=== PATIENT | female | born 1955 | race Caucasian/White ===

== ENCOUNTER → 2020-07-28 | Outpatient (CLI) | payer BC ==
[~2020-07-28] MED LIST: ASPI-886 PO; CITA10TA4 PO; DOCU-153 PO; GABA-585 PO; HYDR-2761 PO; LEVO50TA5 PO; METH750T2 PO; TRAM50TA PO
[2020-07-28 14:15] LABS: BASO # 0.1 x10^3/uL (0.0-0.2); BASO % 1 % (0-3); EOS # 0.4 x10^3/uL (0.0-0.7); EOS % 4 % (0-3); HEMATOCRIT 43.3 % (36.0-47.0); HEMOGLOBIN 14.8 g/dL (12.0-15.5); LYMPH # 2.4 x10^3/uL (1.0-4.8); LYMPH % 26 % (24-48); MEAN CORPUSCULAR HEMOGLOBIN 32 pg (25-35); MEAN CORPUSCULAR HGB CONC 34 g/dL (31-37); MEAN CORPUSCULAR VOLUME 93 fL (79-100); MONO # 0.9 x10^3/uL (0.0-1.1); MONO % 10 % (0-9); NEUT # 5.6 x10^3/uL (1.8-7.7); NEUT % 60 % (31-73); PLATELET COUNT 170 x10^3/uL (140-400); RED BLOOD COUNT 4.65 x10^6/uL (3.50-5.40); RED CELL DISTRIBUTION WIDTH 13.3 % (11.5-14.5); WHITE BLOOD COUNT 9.4 x10^3/uL (4.0-11.0)
[2020-07-28 14:46] LABS: ALBUMIN 3.5 g/dL (3.4-5.0); CALCIUM 8.9 mg/dL (8.5-10.1); CREATININE 0.8 mg/dL (0.6-1.0); GFR 72.2; POTASSIUM 3.9 mmol/L (3.5-5.1); TOTAL BILIRUBIN 0.5 mg/dL (0.2-1.0)
[2020-07-28 15:33] LABS: PLT ESTIMATE ADEQUATE (ADEQUATE)
--- NOTE | 2020-08-02 14:52 | HP ---
ADMIT DATE: PREOPERATIVE HISTORY AND PHYSICAL Saturnino Mohan dictating for Dr. Yifan Canales. DATE OF SURGERY: 08/03/2020. HISTORY OF PRESENT ILLNESS: The patient is a pleasant 65-year-old, who is having difficulty with sharp pain in her left neck and left shoulder. She notices pain which radiates into both of her arms, the left is much worse at night. She said she began to notice unsteadiness with walking combined with generalized weakness. These problems began about 6 months ago with regard to numbness and 2 months ago with regard to pain. She rates her pain as a 6-7/10 with tramadol. Moving her upper extremities, increases her pain. She also has low back pain, which she says radiates into both of her legs, worse on the left. PAST MEDICAL HISTORY: Head or neck injury, thyroid disease, pneumonia. PAST SURGICAL HISTORY: Lumbar microdecompression, L5-S1, 1989 and ACDF in 1989. FAMILY HISTORY: Cancer, diabetes, heart problems and disease, hypertension, [place] at an early age. SOCIAL HISTORY: Retired. . Rarely exercises. Denies substance abuse. Smokes one half pack per day and has for 15 years. Drinks alcohol 1-2 times per year. Drinks soda daily. ALLERGIES: No known drug allergies. CURRENT MEDICATIONS: Aspirin, levothyroxine, atorvastatin, citalopram, tramadol. REVIEW OF SYSTEMS: A 12-point review of systems was obtained and is noncontributory except that mentioned above. PHYSICAL EXAMINATION: NEUROSURGERY EXAMINATION: GENERAL APPEARANCE: Alert, pleasant, no acute distress. HEAD: Normocephalic and atraumatic. NECK AND THYROID: Gijy-bb-mugzamwo tenderness with palpation of posterior cervical region, especially on the left side of the left trapezius. SKIN: Warm and dry. MUSCULOSKELETAL: Cervical paraspinal muscle bulk is normal, cervical range of motion is restricted, normal range of motion of the upper extremities bilaterally. EXTREMITIES: No clubbing, cyanosis or edema. NEUROLOGIC: Alert and oriented x 3, normal recent and remote memory. Strength 5/5 in bilateral upper and lower extremities, sensory was intact to light touch in the upper and lower extremities except for subjective numbness and tingling in both of her hands. Reflexes are present and symmetric in the upper and lower extremities bilaterally, and they were increased in the knees and ankles with 2-3 beats of clonus on each side. Normal gait. IMAGING: Reviewed. I reviewed a cervical MRI scan from 04/04/2020. The principal abnormalities are at C3-C4. There is a relatively severe cervical spinal stenosis with myelomalacia within the spinal cord. At C5-C6, there is a moderately severe stenosis without definite cord compression. ASSESSMENT: 1. Spinal stenosis, cervical region. 2. Other spondylosis with myelopathy, cervical region. 3. Pain in the left shoulder. PLAN: At this point, she has 2 problems. There is a left shoulder issue, this will need to be evaluated by Orthopedic Surgery. Additionally, she has a severe cervical spinal stenosis at C3-C4 with changes within the spinal cord and evidence of cervical myelopathy. I would have her undergo an anterior cervical diskectomy and fusion at C3-C4. I did discuss cervical surgery with the patient and her . I outlined the risks as well as the benefits and surgeries. I spoke about technically the operation and expected postoperative course. She understands. We will make the arrangements. YIFAN CANALES MD DR: RPINCE/jorge luis JOB#: [id number] / [id number]
== END | disposition home or self-care (01) ==
LOC: SURGPAT 12:55
PROVIDERS: ATTEND Neurological Surgery
DX: Z01.812 Encounter for preprocedural laboratory examination (principal); M48.02 Spinal stenosis, cervical region; M47.12 Other spondylosis with myelopathy, cervical region; Z20.828 Contact with and (suspected) exposure to other viral communicable diseases
CPT/HCPCS: 80053; 85025; 87641; U0003

== ENCOUNTER 2020-08-03 10:20 | Day surgery (SDC) | payer BC ==
[~2020-08-03] VITALS: Ht 165.1 cm; Wt 63.5 kg
[2020-08-03] VITALS (8 sets, daily range): BP systolic 112–129; BP diastolic 45–92
--- NOTE | 2020-08-03 07:04 | HP ---
ADMIT DATE: PREOPERATIVE HISTORY AND PHYSICAL Saturnino Mohan dictating for Dr. Yifan Canales. DATE OF SURGERY: 08/03/2020. HISTORY OF PRESENT ILLNESS: The patient is a pleasant 65-year-old, who is having difficulty with sharp pain in her left neck and left shoulder. She notices pain which radiates into both of her arms, the left is much worse at night. She said she began to notice unsteadiness with walking combined with generalized weakness. These problems began about 6 months ago with regard to numbness and 2 months ago with regard to pain. She rates her pain as a 6-7/10 with tramadol. Moving her upper extremities, increases her pain. She also has low back pain, which she says radiates into both of her legs, worse on the left. PAST MEDICAL HISTORY: Head or neck injury, thyroid disease, pneumonia. PAST SURGICAL HISTORY: Lumbar microdecompression, L5-S1, 1989 and ACDF in 1989. FAMILY HISTORY: Cancer, diabetes, heart problems and disease, hypertension, [place] at an early age. SOCIAL HISTORY: Retired. . Rarely exercises. Denies substance abuse. Smokes one half pack per day and has for 15 years. Drinks alcohol 1-2 times per year. Drinks soda daily. ALLERGIES: No known drug allergies. CURRENT MEDICATIONS: Aspirin, levothyroxine, atorvastatin, citalopram, tramadol. REVIEW OF SYSTEMS: A 12-point review of systems was obtained and is noncontributory except that mentioned above. PHYSICAL EXAMINATION: NEUROSURGERY EXAMINATION: GENERAL APPEARANCE: Alert, pleasant, no acute distress. HEAD: Normocephalic and atraumatic. NECK AND THYROID: Chhf-st-npdaqdrg tenderness with palpation of posterior cervical region, especially on the left side of the left trapezius. SKIN: Warm and dry. MUSCULOSKELETAL: Cervical paraspinal muscle bulk is normal, cervical range of motion is restricted, normal range of motion of the upper extremities bilaterally. EXTREMITIES: No clubbing, cyanosis or edema. NEUROLOGIC: Alert and oriented x 3, normal recent and remote memory. Strength 5/5 in bilateral upper and lower extremities, sensory was intact to light touch in the upper and lower extremities except for subjective numbness and tingling in both of her hands. Reflexes are present and symmetric in the upper and lower extremities bilaterally, and they were increased in the knees and ankles with 2-3 beats of clonus on each side. Normal gait. IMAGING: Reviewed. I reviewed a cervical MRI scan from 04/04/2020. The principal abnormalities are at C3-C4. There is a relatively severe cervical spinal stenosis with myelomalacia within the spinal cord. At C5-C6, there is a moderately severe stenosis without definite cord compression. ASSESSMENT: 1. Spinal stenosis, cervical region. 2. Other spondylosis with myelopathy, cervical region. 3. Pain in the left shoulder. PLAN: At this point, she has 2 problems. There is a left shoulder issue, this will need to be evaluated by Orthopedic Surgery. Additionally, she has a severe cervical spinal stenosis at C3-C4 with changes within the spinal cord and evidence of cervical myelopathy. I would have her undergo an anterior cervical diskectomy and fusion at C3-C4. I did discuss cervical surgery with the patient and her . I outlined the risks as well as the benefits and surgeries. I spoke about technically the operation and expected postoperative course. She understands. We will make the arrangements. YIFAN CNAALES MD DR: PRINCE/jorge luis JOB#: [id number] / [id number]
[~2020-08-03 10:20] MED LIST changes: +BACITRACIN 50,000 UNIT in IV NORMAL SALINE 1000ML BAG 1,000 ML IRR ONE; -DOCU-153 PO; -HYDR-2761 PO; -METH750T2 PO
[2020-08-03] MEDS ORDERED: GELATIN SPONGE SIZE 100. ONE (11:00)
[2020-08-03] MEDS ORDERED: BUPIVACAINE-EPI 0.5%-1:200000 MPF 30 ML VIAL. ONE (11:00)
[2020-08-03] MEDS ORDERED: THROMBIN TOPICAL 20,000 UNIT SPRAY.SYRN KIT TP ONE (11:01)
[2020-08-03] MEDS ORDERED: ROCURONIUM 50 MG/5 ML VIAL. ONE (11:15)
[2020-08-03] MEDS ORDERED: PROPOFOL 10 MG/ML (20ML) VIAL. IV ONE (11:15)
[2020-08-03] MEDS ORDERED: LIDOCAINE 2% PF 5 ML VIAL. ONE (11:15)
[2020-08-03] MEDS ORDERED: REMIFENTANIL 1 MG VIAL. IV ONE ×2 (11:15→14:14)
[2020-08-03] MEDS: IV RINGERS,LACTATED 1000ML 1,000 ML IV SCH ×2 (11:15→21:10)
[2020-08-03] MEDS ORDERED: fentaNYL PF VIAL 100 MCG/2 ML VIAL ONE ×3 (11:15→16:32)
[2020-08-03] MEDS ORDERED: PROPOFOL 50 ML IV ONE ×2 (11:16→13:38)
[2020-08-03] MEDS ORDERED: PHENYLEPHRINE in 0.9% NACL PF 1 MG/10 ML SYRINGE. IV ONE (11:16)
[2020-08-03] MEDS ORDERED: SUCCINYLCHOLINE 200 MG/10 ML VIAL. ONE (11:17)
[2020-08-03] MEDS ORDERED: 0.9 % SODIUM CHLORIDE 20 ML VIAL. IJ ONE (11:18)
[2020-08-03] MEDS ORDERED: DEXAMETHASONE SOD PHOS 20 MG/5 ML VIAL. ONE (13:00)
[2020-08-03] MEDS ORDERED: ONDANSETRON PF 4 MG/2 ML VIAL. ONE (13:00)
[2020-08-03] MEDS ORDERED: IV RINGERS,LACTATED 1000ML 1,000 ML IV SCH (15:33)
[2020-08-03] MEDS ORDERED: MAG HYDROX/ALUMINUM HYD/SIMETH 30 ML ORAL.SUSP PO PRN (15:45)
[2020-08-03] MEDS ORDERED: ACETAMINOPHEN 325 MG TABLET. PO PRN (15:45)
[2020-08-03] MEDS ORDERED: METHOCARBAMOL 750 MG TABLET PO PRN (15:45)
[2020-08-03] MEDS ORDERED: CALCIUM CARBONATE 500 MG TAB.CHEW PO PRN (15:45)
[2020-08-03] MEDS ORDERED: HYDROmorphone 2 MG/ML VIAL IV PRN (15:45)
[2020-08-03] MEDS ORDERED: LIDOCAINE 1% PF 2 ML VIAL. ID PRN (15:45)
[2020-08-03] MEDS ORDERED: HYDROcodone/APAP 5/325MG 1 TAB TABLET PO PRN (15:45)
[2020-08-03] MEDS ORDERED: fentaNYL PF VIAL 100 MCG/2 ML VIAL IV PRN ×2 (15:45)
[2020-08-03] MEDS ORDERED: fentaNYL PF VIAL 100 MCG/2 ML VIAL IVP PRN (15:45)
[2020-08-03] MEDS ORDERED: MAGNESIUM HYDROXIDE 2,400 MG/30 ML ORAL.SUSP. PO PRN (15:45)
[2020-08-03] MEDS ORDERED: NALOXONE 0.4 MG/ML VIAL. IV PRN (15:45)
[2020-08-03] MEDS ORDERED: 0.9 % SODIUM CHLORIDE 10 ML DISP.SYRIN. IV PRN (15:45)
[2020-08-03] MEDS ORDERED: traMADol 50 MG TABLET PO PRN (15:45)
[2020-08-03] MEDS ORDERED: PROCHLORPERAZINE 10 MG/2 ML VIAL. IV PRN (15:45)
[2020-08-03] MEDS ORDERED: ONDANSETRON PF 4 MG/2 ML VIAL. IV PRN (15:45)
[2020-08-03] MEDS ORDERED: diphenhydrAMINE HCL 25 MG CAPSULE PO PRN (15:45)
[2020-08-03] MEDS ORDERED: MORPHINE SULFATE 2 MG/ML VIAL. ONE (16:04)
[2020-08-03] MEDS: MORPHINE SULFATE 2 MG/ML VIAL. IV PRN ×2 (16:06→16:15)
--- NOTE | 2020-08-03 16:45 | NUR ---
Arrived to unit by bed from PACU. C/o nausea. Cold cloth applied to forehead. Anterior neck dressing is d/i with soft collar. Moves all extremities easily still has some numbness left foot. Pedal pulses +. IVF's intact and infusing. TONY's and SCD's on bilaterally. Side rails up x's 2 with call light in reach. Spouse at bedside. VS stable. Cont. monitor.
--- NOTE | 2020-08-03 17:00 | NUR ---
Ambulated to bathroom and voided and return back to bed. State pain is so much better prior to surgery. Took sips of lemon coquille soda and belched. Stated "feel better". Gave jello and juice. Cont. monitor.
--- NOTE | 2020-08-03 17:04 | OP ---
DATE OF SURGERY: 08/03/2020 PREOPERATIVE DIAGNOSIS: Herniated cervical disc, C3-C4, with cervical spinal stenosis and myelomalacia. POSTOPERATIVE DIAGNOSIS: Herniated cervical disc, C3-C4, with cervical spinal stenosis and myelomalacia. OPERATION PERFORMED: Anterior cervical microdiscectomy at C3-C4; anterior cervical interbody fusion at C3-C4 with allograft and bone; and anterior cervical plate C3-C4. The operation was done with multimodality monitoring including EMG, SSEP, NIMS monitoring, motor evoked potentials. We also used fluoroscopy and microscopic dissection. ESCALATOR SERVICE MECHANIC: ANGUS Quiroz assisted with the surgery. She assisted with the exposure, the microdiscectomy as well as the closure. OPERATIVE INDICATIONS: The patient is a pleasant 65-year-old who developed intractable neck and bilateral arm pain along with feelings of unsteadiness. She had above-mentioned findings at C3-C4. She also had a degree of stenosis at C5-C6; however, there was no definite cord compression at this level and there was no myelomalacia. I elected to operate anteriorly at C3-C4. She understood the surgery and risks, she wished to go ahead. DESCRIPTION OF PROCEDURE: Following general endotracheal anesthesia, the patient was positioned prone on the Lucien table. Lumbar area was prepped and draped in standard fashion. TONY hose and AV impulse boots were applied for DVT prophylaxis. A microscope was draped. Fluoroscopy was draped and brought into field. Monitoring was established. Ancef 2 g was given less than 1 hour prior to the initiation of the surgery. Using fluoroscopic guidance, an incision was made from the midline around to the right side in a skin crease and at that point, then I dissected down through skin and subcutaneous tissue. I sharply opened the platysma, dissected around the medial aspect of the sternocleidomastoid and carotid artery sheath down the anterior cervical vertebral bodies. I identified C4-C5. I was able to place retractors at C3-C4 and obtained fluoroscopic images. I then placed distraction pins in C3 and C4 and brought in the microscope during this time. I incised the anterior annulus with #11 blade and performed discectomy with pituitary rongeurs. I used the endplate scraper and scraped the cartilaginous endplate. I drilled posteriorly and removed the posterior spurring and then trimmed and removed a large posterior disc bulge. I did open the annulus as well as the ligament and fully decompressed the region. I then measured and placed a 7-mm interbody fusion cage, which was packed with allograft bone. Once this was gently tapped into position, I placed a 20-mm anterior plate, placed superior and inferior 14 mm screws followed by the remaining two screws, which were then locked. I irrigated, I assured myself of excellent positioning on fluoroscopic images. I assured myself of perfect hemostasis. I then closed the wound in layers with absorbable suture. Skin was closed with 4-0 subcuticular stitch. I felt the surgery went very well. ROHIT CANALES MD DR: PRINCE/jorge luis JOB#: [id number] / [id number]
[2020-08-03] MEDS: POTASSIUM CL 20MEQ D5-0.45NACL 1,000 ML IV SCH (19:55)
[2020-08-03] MEDS: HYDROcodone/APAP 5/325MG 1 TAB TABLET PO PRN (21:23)
[2020-08-03] MEDS: GABAPENTIN 100 MG CAPSULE. PO SCH (21:23)
[2020-08-03] MEDS: ceFAZolin SODIUM IV Push 1 GM VIAL. IVP SCH (21:24)
[2020-08-03] MEDS: DOCUSATE SODIUM 100 MG CAPSULE. PO SCH (21:24)
[2020-08-04 03:12] VITALS: BP 98/50
[2020-08-04] MEDS: POTASSIUM CL 20MEQ D5-0.45NACL 1,000 ML IV SCH (04:55)
[2020-08-04] MEDS: ceFAZolin SODIUM IV Push 1 GM VIAL. IVP SCH ×2 (04:56→13:18)
[2020-08-04] MEDS: HYDROcodone/APAP 5/325MG 1 TAB TABLET PO PRN (05:09)
--- NOTE | 2020-08-04 05:09 | NUR ---
0600 Levothyroxine given early with Pain medication as Patient states "I want to sleep."
[2020-08-04] MEDS ORDERED: LEVOTHYROXINE 50 MCG TABLET PO SCH (06:00)
[2020-08-04 06:13] VITALS: BP 115/53
[2020-08-04] MEDS: DOCUSATE SODIUM 100 MG CAPSULE. PO SCH (08:34)
[2020-08-04] MEDS: GABAPENTIN 100 MG CAPSULE. PO SCH (08:34)
[2020-08-04] MEDS ORDERED: CITALOPRAM 10 MG TABLET. PO SCH (09:00)
[2020-08-04] MEDS ORDERED: ASPIRIN ENTERIC COATED 81 MG TABLET.DR. PO SCH (09:00)
[2020-08-04] MEDS ORDERED: DOCU-153 PO (10:47)
[2020-08-04] MEDS ORDERED: METH750T2 PO (10:47)
[2020-08-04] MEDS ORDERED: HYDR-2761 PO (10:47)
--- NOTE | 2020-08-04 10:48 | DISCH ---
DISCHARGE INSTRUCTIONS Condition on Discharge Condition on Discharge: Stable Activity After Discharge Activity Instructions for Disc: Activity as tolerated, Avoid exertion Other activity instructions: no driving for a week, soft collar for comfort Bathing Instructions: Shower-keep dressing dry Diet after Discharge Additional Diet Restrictions: resume home diet Wound Incision Care Wound/Incision Care: Ice to area for comfort Other wound/incision instructi: may remove dressing in 48 hours if dry then may shower, no soaking Contacting the DRAntonio after DC Call your doctor for: Concerns you may have Follow-Up Follow up with: Dr. Canales's nurse in 2 weeks [phone] ROHIT CANALES MD Aug 04, 2020 10:48
[2020-08-04 10:50] VITALS: BP 112/56
--- NOTE | 2020-08-04 13:50 | NUR ---
Discharge instructions given with prescriptions. Answered questions and concerns. Verbalized understanding. Pt discharged home accompanied by spouse.
--- NOTE | 2020-08-05 19:07 | PATHOLOGY ---
[facility] Accession Number: [id number] . 01 Material submitted: . vertebral column - CERVICAL DISC . 01 Clinical history: . CERVICAL STENOSIS, SPONDYLOSIS WITH RADICULOPATHY . 02 Diagnosis: Segments of fibrocartilaginous tissue and bone, cervical disc: - Degenerative changes of fibrocartilaginous tissue. LBQ 08/05/2020 1530 Local . 02 Comment: There is no evidence of an acute inflammatory process or malignancy. (JPM/db; 08/05/2020) . 02 Electronically signed: . Chip Suazo MD, Pathologist NPI- [id number] . 01 Gross description: . The specimen is received in formalin, labeled "Bety Kinge, cervical disc". Received are multiple segments of pale walden fibrous, gritty tissue admixed with possible bone measuring 3.0 x 1.8 x 0.4 cm in aggregate dimensions. The specimen is filtered and entirely submitted in cassette A1, following light decalcification. (CAA; 08/04/2020) QAC/QAC 08/04/2020 1826 Local . 02 Pathologist provided ICD-10: M50.90 . 02 CPT . 050034, [id number] Specimen Comment: A courtesy copy of this report has been sent to [phone], [phone] Specimen Comment: [phone] Specimen Comment: Report sent to / DR LARES Performed at: 01 [facility] [address], [place] [id number] MD Anthony Bell MD Phone: [phone] Performed at: 02 [facility] [address], [place] [id number] MD Chip Suazo MD Phone: [phone]
== END 2020-08-04 13:50 | disposition home or self-care (01) ==
LOC: SURG 10:20 → 4 SOUTHEST 15:30
PROVIDERS: ADMIT Neurological Surgery; ATTEND Neurological Surgery
DX: M50.01 Cervical disc disorder with myelopathy, high cervical region (principal); M48.02 Spinal stenosis, cervical region; M47.12 Other spondylosis with myelopathy, cervical region; G95.89 Other specified diseases of spinal cord; F17.210 Nicotine dependence, cigarettes, uncomplicated
CPT/HCPCS: 20931; 22551; 22845; 76000; 96374; 96376; 97116; 97162; 97530; A7015; G0378; G0379; J0330; J0690; J1100; J2270; J2370; J2405; J2704; J3010; J3490; J7030; J7120; C1713

== ENCOUNTER → 2020-12-01 | Outpatient (CLI) | payer BC ==
[~2020-12-01] MED LIST changes: +ATOR10TA60 PO; -BACITRACIN 50,000 UNIT in IV NORMAL SALINE 1000ML BAG 1,000 ML IRR ONE; +DOCU-153 PO; +HYDR-2761 PO; +METH-562 PO
[2020-12-01 10:17] LABS: BASO # 0.1 x10^3/uL (0.0-0.2); BASO % 1 % (0-3); EOS # 0.3 x10^3/uL (0.0-0.7); EOS % 3 % (0-3); HEMATOCRIT 44.5 % (36.0-47.0); HEMOGLOBIN 14.9 g/dL (12.0-15.5); LYMPH # 2.2 x10^3/uL (1.0-4.8); LYMPH % 20 % (24-48); MEAN CORPUSCULAR HEMOGLOBIN 31 pg (25-35); MEAN CORPUSCULAR HGB CONC 33 g/dL (31-37); MEAN CORPUSCULAR VOLUME 93 fL (79-100); MONO % 9 % (0-9); NEUT # 7.1 x10^3/uL (1.8-7.7); NEUT % 67 % (31-73); PLATELET COUNT 183 x10^3/uL (140-400); RED BLOOD COUNT 4.78 x10^6/uL (3.50-5.40); RED CELL DISTRIBUTION WIDTH 13.3 % (11.5-14.5); WHITE BLOOD COUNT 10.6 x10^3/uL (4.0-11.0)
[2020-12-01 10:36] LABS: ALBUMIN 3.7 g/dL (3.4-5.0); ALBUMIN/GLOBULIN RATIO 0.9 (1.0-1.7); CALCIUM 9.2 mg/dL (8.5-10.1); CREATININE 0.8 mg/dL (0.6-1.0); GFR 72.2; POTASSIUM 4.1 mmol/L (3.5-5.1); TOTAL BILIRUBIN 0.7 mg/dL (0.2-1.0); TOTAL PROTEIN 7.6 g/dL (6.4-8.2)
[2020-12-01 13:21] LABS: PLT ESTIMATE ADEQUATE (ADEQUATE)
== END ==
LOC: SURGPAT 09:21
PROVIDERS: ATTEND Neurological Surgery
DX: Z01.812 Encounter for preprocedural laboratory examination (principal); M48.062 Spinal stenosis, lumbar region with neurogenic claudication; Z20.828 Contact with and (suspected) exposure to other viral communicable diseases
CPT/HCPCS: 36415; 80053; 85025; 87641; U0003

== ENCOUNTER → 2021-01-18 | Outpatient (CLI) | payer BC ==
[~2021-01-18] MED LIST changes: -ATOR10TA60 PO
[2021-01-18 13:43] LABS: BASO # 0.1 x10^3/uL (0.0-0.2); BASO % 1 % (0-3); EOS # 0.3 x10^3/uL (0.0-0.7); EOS % 3 % (0-3); HEMATOCRIT 42.8 % (36.0-47.0); HEMOGLOBIN 14.2 g/dL (12.0-15.5); LYMPH # 2.3 x10^3/uL (1.0-4.8); LYMPH % 24 % (24-48); MEAN CORPUSCULAR HEMOGLOBIN 31 pg (25-35); MEAN CORPUSCULAR HGB CONC 33 g/dL (31-37); MEAN CORPUSCULAR VOLUME 94 fL (79-100); MONO # 0.9 x10^3/uL (0.0-1.1); MONO % 10 % (0-9); NEUT # 6.1 x10^3/uL (1.8-7.7); NEUT % 63 % (31-73); PLATELET COUNT 192 x10^3/uL (140-400); RED BLOOD COUNT 4.56 x10^6/uL (3.50-5.40); RED CELL DISTRIBUTION WIDTH 13.2 % (11.5-14.5); WHITE BLOOD COUNT 9.7 x10^3/uL (4.0-11.0)
[2021-01-18 14:08] LABS: ALBUMIN 3.4 g/dL (3.4-5.0); ALBUMIN/GLOBULIN RATIO 0.9 (1.0-1.7); CREATININE 0.8 mg/dL (0.6-1.0); GFR 72.2; POTASSIUM 4.3 mmol/L (3.5-5.1); TOTAL BILIRUBIN 0.4 mg/dL (0.2-1.0); TOTAL PROTEIN 7.3 g/dL (6.4-8.2)
[2021-01-18 14:09] LABS: PLT ESTIMATE ADEQUATE (ADEQUATE)
== END ==
LOC: SURGPAT 12:46
PROVIDERS: ATTEND Neurological Surgery
DX: Z01.812 Encounter for preprocedural laboratory examination (principal); M48.062 Spinal stenosis, lumbar region with neurogenic claudication; Z20.822 Contact with and (suspected) exposure to COVID-19
CPT/HCPCS: 80053; 85025; 87641; U0003

== ENCOUNTER 2021-01-26 08:11 | Observation (INO) | payer BC ==
--- NOTE | 2021-01-20 17:26 | PREOP HP ---
DATE OF SERVICE: 01/25/2021. PREOPERATIVE HISTORY AND PHYSICAL DATE OF ADMISSION: 01/25/2021. HISTORY OF PRESENT ILLNESS: The patient is a 65-year-old woman who is having difficulty with low back pain and bilateral leg pain in the posterior thighs, legs as well as anterior right thigh. The problem started in the spring. She rates her pain 8/10. Standing and walking increase her pain, lying down helps. She has failed to improve with conservative measures. CURRENT MEDICATIONS: Gabapentin, Robaxin, and tramadol. PAST MEDICAL HISTORY: Head/neck injury, thyroid disease, pneumonia. PAST SURGICAL HISTORY: Lumbar surgery at L5-S1 in 1989, ACDF in 1989, ACDF at C3-C4 in 07/2020. FAMILY HISTORY: Cancer, diabetes, heart disease/hypertension, [place]. ALLERGIES: No known drug allergies. SOCIAL HISTORY: Retired, . Smokes a half pack a day for 15 years. Drinks alcohol 1-2 times per year. REVIEW OF SYSTEMS: A 12-point review of systems was performed and is noncontributory except that mentioned above. PHYSICAL EXAMINATION: GENERAL: Alert, pleasant, in no acute distress. HEAD: Normocephalic, atraumatic. SKIN: Warm and dry. MUSCULOSKELETAL: Lumbar paraspinal muscle bulk is normal, restricted range of motion of the lumbar spine, wjrk-uo-wecjdipo tenderness of the lower lumbar spine with palpation, normal range of motion of the lower extremities bilaterally. EXTREMITIES: No clubbing, cyanosis or edema. NEUROLOGIC: Alert and oriented x 3, normal recent and remote memory, strength is 5/5 in the lower extremities. Sensory was intact to light touch in the lower extremities except for decreased sensation on the left anterior thigh. Reflexes were present and symmetric in the lower extremities, forward stooped gait. IMAGING: I reviewed a lumbar MRI scan from 09/2020. On that study, the principal abnormalities are at L3-L4 where there is severe spinal stenosis and moderate bilateral foraminal lateral recess narrowing. ASSESSMENT AND PLAN: I believe the problems are related to the severe stenosis at L3-L4. I spoke with her about treatment options. She is unable to have epidural steroid injections. She has been doing physical therapy exercises at home with no improvement. At this point, I have recommended a lumbar microdecompressive surgery at L3-L4. I spoke with her about the technique, the risk and the expected postoperative course. She and her understand. She would like to proceed with surgery. ROHIT CANALES MD DR: REGINO/jorge luis JOB#: [id number] / [id number] MARTIN
[2021-01-26] VITALS (7 sets, daily range): BP systolic 87–139; BP diastolic 32–85
[~2021-01-26] VITALS: Ht 165.1 cm; Wt 64.4 kg
[~2021-01-26 08:11] MED LIST changes: +BACITRACIN 50,000 UNIT in IV NORMAL SALINE 1000ML BAG 1,000 ML IRR ONE; +BUPIVACAINE-EPI 0.5%-1:200000 MPF 30 ML VIAL. ONE; +GELATIN SPONGE SIZE 100. ONE; +HYDROmorphone 2 MG/ML VIAL IVP PRN; +IV RINGERS,LACTATED 1000ML 1,000 ML IV SCH; +KETOROLAC 60 MG/2 ML VIAL. ONE; +MORPHINE SULFATE 2 MG/ML VIAL. IVP PRN; +PROCHLORPERAZINE 10 MG/2 ML VIAL. IVP PRN; +THROMBIN TOPICAL 20,000 UNIT SPRAY.SYRN KIT TP ONE; +fentaNYL PF VIAL 100 MCG/2 ML VIAL IVP PRN
[2021-01-26] MEDS ORDERED: ATOR10TA60 PO (08:41)
[2021-01-26] MEDS ORDERED: PROPOFOL 50 ML IV ONE (10:17)
[2021-01-26] MEDS ORDERED: PROPOFOL 10 MG/ML (20ML) VIAL. IV ONE (10:17)
[2021-01-26] MEDS ORDERED: LIDOCAINE 2% PF 5 ML VIAL. ONE (10:17)
[2021-01-26] MEDS ORDERED: fentaNYL PF VIAL 100 MCG/2 ML VIAL ONE (10:18)
[2021-01-26] MEDS ORDERED: ROCURONIUM 50 MG/5 ML VIAL. ONE (10:19)
[2021-01-26] MEDS ORDERED: REMIFENTANIL 2 MG VIAL. IV ONE (10:50)
[2021-01-26] MEDS ORDERED: DEXAMETHASONE SOD PHOS 20 MG/5 ML VIAL. ONE (11:14)
[2021-01-26] MEDS ORDERED: ONDANSETRON PF 4 MG/2 ML VIAL. ONE (11:31)
[2021-01-26] MEDS ORDERED: PHENYLEPHRINE 10 MG/ML VIAL. ONE (11:33)
[2021-01-26] MEDS ORDERED: NEOSTIGMINE METHYLSULFATE 5 MG/5 ML SYRINGE. ONE (13:23)
[2021-01-26] MEDS ORDERED: GLYCOPYRROLATE 1 MG/5 ML VIAL. ONE (13:23)
--- NOTE | 2021-01-26 13:49 | OP ---
DATE OF SURGERY: 01/26/2021 PREOPERATIVE DIAGNOSES: Lumbar spinal stenosis at L3-L4 with lumbar neurogenic claudication. POSTOPERATIVE DIAGNOSES: Lumbar spinal stenosis at L3-L4 with lumbar neurogenic claudication. OPERATION PERFORMED: Bilateral extensive hemilaminotomies at L3-L4, decompression of dura and nerve root, partial foraminotomies bilaterally at L3-L4. SURGEON: Yifan Canales M.D. HEALTHCARE ECONOMICS MANAGER: ANGUS Quiroz assisted with the exposure, the microdecompression as well as the closure. SPECIMEN: Decompression. OPERATIVE INDICATIONS: The patient is a pleasant 65-year-old, who developed intractable back and bilateral leg pain and neurogenic claudication type pattern. She was found on imaging studies to have relatively severe stenosis at L3-L4 and I recommended lumbar microsurgery at this level. I spoke with her about the surgery and the risks, she understood and she wished to go ahead. I also discussed with her the expected postoperative course. I explained that occasionally patients underwent these type of decompression procedures and did not improve. Understanding all of that, she elected to go forward with surgery. In fact, I had her back in the office second time with her and went over the procedure in detail. They fully understood very well the surgery and the risks involved. DESCRIPTION OF PROCEDURE: Following general endotracheal anesthesia, the patient was positioned prone on the Lucien table. Lumbar region prepped and draped in the standard fashion. TONY hose and AV impulse boots were applied for DVT prophylaxis. A microscope was draped. Fluoroscopy was draped and brought into the field. Monitoring was established. Ancef 2 grams was given less than 1 hour prior to initiation of the surgery. We did work very carefully to avoid any pressure points. Using fluoroscopic guidance, I made an incision from mid L3 to mid L4, and dissected down through skin and subcutaneous tissue. Reflected the paraspinal muscles and placed a [place] micro disk retractor on the left. I brought in the microscope and through the microscope, I burred down a very generous hemilaminotomy. I did continue this to the midline and removed the fatty tissue dorsal to the dura at the midline. I peeled the ligamentum flavum from medial to lateral and trimmed this away nicely exposing the dura and the outer edge of the dura. I followed this down and performed a partial foraminotomy. I assured myself, the region was very well decompressed throughout. I did palpate the disc, which was bulging very slightly, but quite firm and no discectomy was warranted. After this, I irrigated copiously. I placed Gelfoam over the hemilaminotomy side. I did use small amounts of bone wax for any bone bleeding. I removed the retractor, I assured myself of excellent hemostasis in the muscle and I went to the right side, reflected the paraspinal muscles, placed a [place] micro disk retractor, created an excellent exposure at this level. I then burred down a generous hemilaminotomy as I did on the other side from the midline out laterally. I carried this to the lateral edge of the dura and thin the dorsal part of the foramen. After trimming the ligamentum flavum both medial to lateral, removing any fat within the medial dorsal epidural space, I then trimmed the ligament laterally, performed a partial foraminotomy, carried my bony exposure and overall exposure farther superiorly and inferiorly and assured myself, the region was well decompressed. Again, I palpated the disc, which I felt was firm and no discectomy was warranted. I did coagulate a few epidural veins. I irrigated copiously. I did use small amounts of bone wax for any bone bleeding. I removed the retractor, obtained hemostasis in the muscle, again irrigated and then I closed the wound in layers with absorbable suture. The skin was closed with 4-0 subcuticular stitch. I felt the surgery went very well. YIFAN CANALES MD DR: PRINCE/jorge luis JOB#: [id number] / [id number] MARTIN
[2021-01-26] MEDS ORDERED: PROCHLORPERAZINE 10 MG/2 ML VIAL. ONE (13:53)
[2021-01-26] MEDS ORDERED: MORPHINE SULFATE 2 MG/ML VIAL. ONE (13:53)
[2021-01-26] MEDS: MORPHINE SULFATE 2 MG/ML VIAL. IVP PRN ×2 (13:55→14:07)
[2021-01-26] MEDS ORDERED: HYDROmorphone 2 MG/ML VIAL ONE (14:16)
[2021-01-26] MEDS ORDERED: ACETAMINOPHEN 325 MG TABLET. PO PRN (14:30)
[2021-01-26] MEDS ORDERED: METHOCARBAMOL 750 MG TABLET PO PRN ×2 (14:30)
[2021-01-26] MEDS ORDERED: MAG HYDROX/ALUMINUM HYD/SIMETH 30 ML ORAL.SUSP PO PRN (14:30)
[2021-01-26] MEDS ORDERED: fentaNYL PF VIAL 100 MCG/2 ML VIAL IVP PRN (14:30)
[2021-01-26] MEDS ORDERED: HYDROcodone/APAP 5/325MG 1 TAB TABLET PO PRN ×3 (14:30)
[2021-01-26] MEDS ORDERED: traMADol 50 MG TABLET PO PRN (14:30)
[2021-01-26] MEDS ORDERED: CALCIUM CARBONATE 500 MG TAB.CHEW PO PRN (14:30)
[2021-01-26] MEDS ORDERED: NALOXONE 0.4 MG/ML VIAL. IV PRN (14:30)
[2021-01-26] MEDS ORDERED: diphenhydrAMINE HCL 25 MG CAPSULE PO PRN (14:30)
[2021-01-26] MEDS ORDERED: MAGNESIUM HYDROXIDE 2,400 MG/30 ML ORAL.SUSP. PO PRN (14:30)
[2021-01-26] MEDS ORDERED: 0.9 % SODIUM CHLORIDE 10 ML DISP.SYRIN. IV PRN (14:30)
--- NOTE | 2021-01-26 16:15 | NUR ---
Arrived by cart from PACU. Ambulated from the door way to bathroom and then to bed. [place] nauseated scopolamine placed by PACU nurse. No further c/o numbness or pain down legs. Dressing midback d/i. Pedal pulses+ bilaterally and warm touch. TONY's on bilaterally. IVF's intact and infusing. Side rails up x's 2 with call light in reach. Spouse at bedside. Cont. monitor.
[2021-01-26] MEDS ORDERED: SCOPOLAMINE 1.5MG PATCH. TD ONE (16:30)
[2021-01-26] MEDS: POTASSIUM CL 20MEQ D5-0.45NACL 1,000 ML IV SCH (18:03)
--- NOTE | 2021-01-26 18:30 | NUR ---
Ambulated to bathroom with assist x's 1 and cane. Voided less 100cc. Still nauseated and has not eaten or drank anything since arrival. Vomited 100cc brown liquid ( looked like chocolate milk). Will continue to monitor for any further episodes.
[2021-01-26] MEDS: DOCUSATE SODIUM 100 MG CAPSULE. PO SCH (20:14)
[2021-01-26] MEDS ORDERED: DOCUSATE SODIUM 100 MG CAPSULE. PO SCH (21:00)
[2021-01-26] MEDS ORDERED: ATORVASTATIN CALCIUM 10 MG TABLET. PO SCH (21:00)
[2021-01-27 03:25] VITALS: BP 98/43
[2021-01-27] MEDS: POTASSIUM CL 20MEQ D5-0.45NACL 1,000 ML IV SCH (04:50)
[2021-01-27 07:00] VITALS: BP 106/41
[2021-01-27] MEDS ORDERED: LEVOTHYROXINE 50 MCG TABLET PO SCH (07:00)
[2021-01-27] MEDS: DOCUSATE SODIUM 100 MG CAPSULE. PO SCH (08:12)
[2021-01-27] MEDS ORDERED: ASPIRIN ENTERIC COATED 81 MG TABLET.DR. PO SCH (09:00)
[2021-01-27] MEDS ORDERED: CITALOPRAM 10 MG TABLET. PO SCH (09:00)
[2021-01-27 11:00] VITALS: BP 97/40
--- NOTE | 2021-01-27 12:59 | DISCH ---
DISCHARGE INSTRUCTIONS Condition on Discharge Condition on Discharge: Stable Activity After Discharge Activity Instructions for Disc: Activity as tolerated, Avoid exertion Bathing Instructions: No Tub Bath until see Lifting Instructions after Dis: No heavy lifting, No pulling or pushing, Do not lift >10 pounds Exercise Instruction after Dis: Walk 10 min, 3 x per day Driving Instructions after Dis: No driving for 2 weeks Weight Bearing Status after Di: No restrictions Diet after Discharge Diet after Discharge: Regular Additional Diet Restrictions: resume home diet Diet Texture: Regular Liquid Texture: Thin Liquid Swallowing Supervision: None needed Wound Incision Care Wound/Incision Care: Ice to area for comfort, May get incision wet Other wound/incision instructi: may remove dressing in 48 hours if dry, may shower- no soaking Contacting the DRAntonio after DC Call your doctor for: Concerns you may have Follow-Up Follow up with: Dr. Canales's nurse in 2 weeks [phone] Treatment/Equipment after DC Adaptive Equipment Issued: None ROHIT CANALES MD Jan 27, 2021 12:59
--- NOTE | 2021-01-27 13:58 | DS ---
DATE OF DISCHARGE: DISCHARGE DIAGNOSIS: Lumbar spinal stenosis at L3-L4 with lumbar neurogenic claudication. OPERATION PERFORMED: Bilateral hemilaminotomies at L3-L4, partial foraminotomies bilaterally at L3-L4. HISTORY OF PRESENT ILLNESS: The patient is a 65-year-old who developed intractable back and bilateral leg pain with neurogenic claudication type pattern. She was found on imaging studies to have severe stenosis at L3-L4 and I recommended lumbar microsurgery at this level. I spoke with her about the surgery and the risk. She understood and she wished to proceed. I also discussed with her the expected postoperative course. I explained that, occasionally when patients undergo these types of decompression procedures, they may not improve. Understanding all of that, she elected to move forward with surgery. HOSPITAL COURSE: She was admitted to the floor postoperatively, where she did well. She has been up ambulating in the room and in the halls. Physical therapy was initiated and instruction was given to her regarding her activities. She reports significant improvement in her pain. She is in good condition to discharge home. DISCHARGE MEDICATIONS: She will resume her medications per the MRAD. DISCHARGE INSTRUCTIONS: She was instructed regarding incision care, activity restrictions and expectations for the next several weeks. She will follow up in our office in 2 weeks. She understands to call with any questions or concerns. ROHIT CANALES MD DR: REGINO/jorge luis JOB#: [id number] / [id number]
--- NOTE | 2021-01-27 14:21 | NUR ---
Patient left with her around 1415. Discharge education completed by this nurse and the doctor prior to discharge. Surgical dressing still in place per Dr Akbar orders and some spare dressing were given to them for future dressing changes if needed. Scripts for robaxin and lortab given to the patient. IV discontinued without any complications. No concerns noted at discharge.
--- NOTE | 2021-01-31 09:16 | PATHOLOGY ---
[facility] Accession Number: [id number] . 01 Material submitted: . vertebral column - LUMBAR DECOMPRESSION . 01 Clinical history: . LUMBAR STENOSIS LUMBAR MICRODECOMPRESSION L34 . 02 Diagnosis: Segments of fibrocartilaginous, fibroadipose and skeletal muscle tissue and bone, lumbar decompression: - Degenerative changes of fibrocartilaginous tissue. ([facility] 01/30/2021) [facility] 01/30/2021 1708 Local . 02 Comment: There is no evidence of an acute inflammatory process or malignancy. ([facility] 01/30/2021) . 02 Electronically signed: . Chip Suazo MD, Pathologist NPI- [id number] . 01 Gross description: . Received in formalin labeled "Bety Head, lumbar decompression" is a 4.0 x 3.6 x 1.0 cm aggregate of walden-brown, rubbery and gritty soft tissue and bone. Weight Guesser tissue is submitted in cassette A1 following decalcification. ([facility]; 01/29/2021) [facility] 01/30/2021 1707 Local . 02 Pathologist provided ICD-10: M51.36 . 02 CPT . 318562, [id number] Specimen Comment: A courtesy copy of this report has been sent to [phone], [phone] Specimen Comment: [id number] Specimen Comment: Report sent to / DR LARES Performed at: 01 [facility] [address], [place] [id number] MD Vincenzo Dejesus MD Phone: [phone] Performed at: 02 [facility] [address], [place] [id number] MD Chip Suazo MD Phone: [phone]
== END 2021-01-27 14:20 | disposition home or self-care (01) ==
LOC: SURG 08:11 → 4 NORTH 14:26
PROVIDERS: ADMIT Neurological Surgery; ATTEND Neurological Surgery
DX: M48.062 Spinal stenosis, lumbar region with neurogenic claudication (principal); M48.02 Spinal stenosis, cervical region; E07.9 Disorder of thyroid, unspecified; J18.9 Pneumonia, unspecified organism; Z98.890 Other specified postprocedural states; Z87.891 Personal history of nicotine dependence
CPT/HCPCS: 63030; 96360; 96361; 97161; 97530; A4364; A4930; A6254; A6258; G0378; G0379; J0690; J0780; J1100; J1170; J1885; J2270; J2370; J2405; J2704; J2710; J3010; J3480; J3490; J7030; 76000; 88304; 88311; A4657

== ENCOUNTER → 2021-11-24 | Outpatient (CLI) | payer MEDICARE ==
[~2021-11-24] MED LIST changes: +ATOR10TA60 PO; -BACITRACIN 50,000 UNIT in IV NORMAL SALINE 1000ML BAG 1,000 ML IRR ONE; -BUPIVACAINE-EPI 0.5%-1:200000 MPF 30 ML VIAL. ONE; -CITA10TA4 PO; +CITA10TA5 PO; +DOCU-148 PO; -DOCU-153 PO; -GELATIN SPONGE SIZE 100. ONE; -HYDROmorphone 2 MG/ML VIAL IVP PRN; -IV RINGERS,LACTATED 1000ML 1,000 ML IV SCH; -KETOROLAC 60 MG/2 ML VIAL. ONE; -MORPHINE SULFATE 2 MG/ML VIAL. IVP PRN; -PROCHLORPERAZINE 10 MG/2 ML VIAL. IVP PRN; -THROMBIN TOPICAL 20,000 UNIT SPRAY.SYRN KIT TP ONE; -fentaNYL PF VIAL 100 MCG/2 ML VIAL IVP PRN
--- NOTE | 2021-11-24 12:05 | KCIC ---
EXAMINATION: Magnetic resonance imaging (MRI) of the cervical spine without contrast 11/24/2021 10:15 AM HISTORY: Cervical stenosis. Prior anterior surgery. Worsening bilateral upper extremity weakness and pain in shoulders. TECHNIQUE: Multiplanar multi-weighted MRI of the cervical spine was performed without intravenous con trast using the standard cervical spine protocol. Contrast information: None administered COMPARISON: None available. FINDINGS: There is 1 mm retrolisthesis of C5 on C6. Moderate disc height loss at C6-C7 and mild disc height los s at C5-C6. Disc desiccation identified at all levels of cervical spine. Anterior cervical discectomy and fusion hardware is identified at C3-C4. Vertebral bodies demonstrate normal signal intensity on all sequences. No acute fracture is identified; however, if trauma is suspected, a CT scan would be a more sensitive examination for fractures. The craniocervical junction is normal. The visualized p ortions of the skull base and the posterior fossa are normal. There is T2 signal hyperintensity at C 3-C4 involving the cervical cord with associated volume loss compatible with myelomalacia. No soft t issue abnormality is identified. Normal signal voids are present in the vertebral arteries. C2-C3: The disk is normal in configuration. There is mild left facet arthropathy. There is no uncove rtebral joint disease. There is mild left neuroforaminal stenosis. There is no spinal canal stenosis. C3-C4: This level is fused. Mild spinal canal stenosis secondary to ligamentum flavum infolding. Mild facet arthropathy. Mild left neural foraminal stenosis. C4-C5: There is a posterior disc osteophyte complex. Moderate right and mild left facet arthropathy. Moderate uncovertebral joint disease. Moderate bilateral neuroforaminal stenosis. Mild spinal canal s tenosis without significant deformity of the cord or cord signal alteration. C5-C6: There is a posterior disc osteophyte complex with right foraminal disc extrusion. Mild facet a rthropathy. Moderate right and mild left uncovertebral joint disease. Moderate to severe right and mo derate left neuroforaminal stenosis. Moderate spinal canal stenosis with mild deformity ventral cord. No cord signal alteration. C6-C7: There is mild disc bulge. No significant facet arthropathy. Mild uncovertebral joint disease. Moderate bilateral neuroforaminal stenosis. No significant spinal canal stenosis. C7-T1: The disk is normal in configuration. There is no facet arthropathy. There is no uncovertebral joint disease. There is no neuroforaminal stenosis. There is no spinal canal stenosis. IMPRESSION: 1. Anterior cervical discectomy and fusion hardware identified at C3-C4 without evidence for hardware failure. Myelomalacia identified at C3-C4. There is persistent mild spinal canal stenosis, exacerbat ed by ligament of flavum infolding. 2. Mild to moderate degenerative changes of the cervical spine as detailed above. Electronically signed by: Leona Alicia MD (11/24/2021 12:03 PM) [id number]
== END ==
LOC: KCIC MRI 09:43
PROVIDERS: ATTEND Neurological Surgery
DX: M47.812 Spondylosis without myelopathy or radiculopathy, cervical region (principal); M48.02 Spinal stenosis, cervical region; M50.222 Other cervical disc displacement at C5-C6 level; M25.78 Osteophyte, vertebrae
CPT/HCPCS: 72141